=== PATIENT | male | born 1980 | race Caucasian/White ===

== ENCOUNTER → 2022-02-10 | Outpatient (CLI) | payer BC ==
[~2022-02-10] MED LIST: PERCOCET 7.5-31 EACH PO; TIZANIDINE HCL4 MG PO
== END | disposition home or self-care (01) ==
LOC: ORTHO 07:23
PROVIDERS: ATTEND Orthopaedic Surgery
DX: S42.102A Fracture of unspecified part of scapula, left shoulder, initial encounter for closed fracture (principal); S22.42XA Multiple fractures of ribs, left side, initial encounter for closed fracture; X58.XXXA Exposure to other specified factors, initial encounter; Y93.89 Activity, other specified; Y92.89 Other specified places as the place of occurrence of the external cause; Y99.8 Other external cause status

== ENCOUNTER → 2022-03-12 | Outpatient (CLI) | payer BC | END | disposition home or self-care (01) | LOC: ORTHO 00:44 | PROVIDERS: ATTEND Orthopaedic Surgery | DX: S42.112D Displaced fracture of body of scapula, left shoulder, subsequent encounter for fracture with routine healing (principal); S22.42XA Multiple fractures of ribs, left side, initial encounter for closed fracture; X58.XXXD Exposure to other specified factors, subsequent encounter; X58.XXXA Exposure to other specified factors, initial encounter; Y93.89 Activity, other specified; Y92.89 Other specified places as the place of occurrence of the external cause; Y99.8 Other external cause status ==